=== PATIENT | female | born 1990 | race Caucasian/White ===

== ENCOUNTER 2019-01-04 08:20 | Emergency (ER) | payer OTHER ==
[2019-01-04] MEDS ORDERED: Zofran 4 MG/2 ML VIAL ONE ×2 (08:41→08:48)
[2019-01-04] MEDS ORDERED: Sodium Chloride 0.9% 1000 ML 1,000 ML ONE ×2 (08:41→10:31)
[2019-01-04] MEDS ORDERED: TORAdol 30 mg Injection ONE ×2 (08:41→08:48)
[2019-01-04] MEDS ORDERED: Zofran 4 MG/2 ML VIAL IV ONE (08:44)
[2019-01-04] MEDS ORDERED: TORAdol 30 mg Injection IV ONE (08:44)
[2019-01-04] MEDS ORDERED: Sodium Chloride 0.9% 1000 ML 1,000 ML IV STA ×2 (08:44→10:04)
[2019-01-04] MEDS ORDERED: Sodium Chloride 0.9% 1000 ML 0 ML ONE (08:48)
--- NOTE | 2019-01-04 08:49 | ERPHSYRPT ---
- History of Present Illness Time Seen by Provider: 01/04/19 08:44 Historian: patient Exam Limitations: no limitations Patient Subjective Stated Complaint: Pt states she woke up this am with pain. Patients reports not pain like this in the past Triage Nursing Assessment: Patient ambulated into ER. patinet Alert and orientated, complains of pain to left lower back and abdomin since this am. Pain not reported with urination. Patient complains of nausia Physician History: 28-year-old white female arrives with complaint of pain in her left flank radiating to her left lower quadrant symptoms since 7:30 this morning described as sharp severe crampy. Patient has had vomiting since arrival to the emergency room she denies any urinary symptoms. Past medical history: Negative Past surgical history includes tubal ligation Social history denies tobacco alcohol or illicit drug use. Timing/Duration: today (7:30 AM) Activities at Onset: rest Quality: cramping, sharpness Abdominal Pain Onset Location: LLQ, flank (left flank) Pain Radiation: LLQ, flank (left flank) Severity of Pain-Max: moderate Severity of Pain-Current: moderate Modifying Factors: Improves With: nothing Associated Symptoms: back (left flank pain), nausea, vomiting, No chest pain, No diaphoresis, No diarrhea, No fever/chills, No fatigue, No headache, No heartburn, No loss of appetite, No neck pain, No rash, No shortness of breath, No syncope Previous symptoms: no prior history Allergies/Adverse Reactions: No Known Drug Allergies Allergy (Unverified 01/04/19 08:42) Hx Tetanus, Diphtheria Vaccination/Date Given: No Hx Influenza Vaccination/Date Given: Yes Hx Pneumococcal Vaccination/Date Given: No Immunizations Up to Date: Yes - Review of Systems Constitutional: No Fever, No Chills Eyes: No Symptoms Ears, Nose, & Throat: No Symptoms Respiratory: No Cough, No Dyspnea Cardiac: No Chest Pain, No Edema, No Syncope Abdominal/Gastrointestinal: Abdominal Pain (left lower quadrant pain), Nausea, Vomiting, No Diarrhea, No Constipation, No Hematemesis, No Hematochezia, No Melena, No Dysphagia, No Appetite Changes Genitourinary Symptoms: Flank Pain (left flank pain), No Dysuria, No Hematuria, No Hesitancy, No Incontinence, No Urgency, No Urinary Retention, No Menorrhagia , No , No Vaginal Bleeding Musculoskeletal: Back Pain (left flank pain), No Neck Pain Skin: No Rash Neurological: No Dizziness, No Focal Weakness, No Sensory Changes Psychological: No Symptoms Endocrine: No Symptoms All Other Systems: Reviewed and Negative - Past Medical History Pertinent Past Medical History: No Neurological History: No Pertinent History ENT History: No Pertinent History Cardiac History: No Pertinent History Respiratory History: No Pertinent History Endocrine Medical History: No Pertinent History Musculoskeletal History: No Pertinent History GI Medical History: No Pertinent History History: No Pertinent History Psycho-Social History: No Pertinent History Female Reproductive Disorders: No Pertinent History - Past Surgical History Past Surgical History: Yes Neuro Surgical History: No Pertinent History Cardiac: No Pertinent History Respiratory: No Pertinent History Gastrointestinal: No Pertinent History Genitourinary: No Pertinent History Musculoskeletal: No Pertinent History Female Surgical History: Section, Tubal Ligation - Social History Smoking Status: Never smoker Exposure to second hand smoke: No Drug Use: none - Female History Hx Last Menstrual Period: 12/05/18 Hx Now: No - Nursing Vital Signs Nursing Vital Signs: Initial Vital Signs Temperature 97.9 F 01/04/19 08:24 Pulse Rate 53 L 01/04/19 08:24 Respiratory Rate 20 01/04/19 08:24 Blood Pressure 117/78 01/04/19 08:24 O2 Sat by Pulse Oximetry 99 01/04/19 08:24 Pain Scale Pain Intensity 10 - Physical Exam General Appearance: moderate distress, alert Eye Exam: PERRL/EOMI, eyes nml inspection Ears, Nose, Throat Exam: normal ENT inspection, pharynx normal, moist mucous membranes Neck Exam: normal inspection, non-tender, supple, full range of motion Respiratory Exam: normal breath sounds, lungs clear, No respiratory distress Cardiovascular Exam: regular rate/rhythm, normal heart sounds, capillary refill <2 sec Gastrointestinal/Abdomen Exam: soft, No tenderness, No mass Back Exam: normal inspection, normal range of motion, No CVA tenderness, No vertebral tenderness Extremity Exam: normal inspection, normal range of motion, pelvis stable Neurologic Exam: alert, oriented x 3, cooperative, bowl topper II-XII nml as tested, normal mood/affect, nml cerebellar function, sensation nml, No motor deficits Skin Exam: normal color, warm, dry SpO2 Interpretation: normal (99%) SpO2: 99 - Course Nursing assessment & vital signs reviewed: Yes - CT Exams Abdomen/Pelvis CT Interpretation: Discussed w/radiologist (CT abdomen and pelvis: Impression 1. 3 mm distal left ureter calculus producing partial obstruction. Additional left renal microcalculus. Tiny cul-de-sac fluid presumably physiologic. 3. Remaining CT abdomen and pelvis without contrast negative..) Ordered Tests: Active Orders 24 hr Category Date Time Status IV Insertion STAT Care 01/04/19 08:44 Active ABDOMEN AND PELVIS W/0 CONTRAS [CT] Stat Exams 01/04/19 09:01 Completed CBC W DIFF Stat Lab 01/04/19 08:44 Completed CMP Stat Lab 01/04/19 08:50 Completed CULTURE,URINE Stat Lab 01/04/19 08:50 Received HCG QUALITATIVE,SERUM Stat Lab 01/04/19 08:50 Completed UA W/RFX UR CULTURE Stat Lab 01/04/19 08:50 Completed Medication Summary Discontinued Medications Generic Name Dose Route Start Last Admin Trade Name Freq PRN Reason Stop Dose Admin Sodium Chloride Confirm 01/04/19 08:41 Sodium Chloride 0.9% 1000 Ml Administered 01/04/19 08:42 Dose 1,000 mls @ ud .ROUTE .STK-MED ONE Sodium Chloride 1,000 mls @ 999 mls/hr 01/04/19 08:44 01/04/19 09:56 Sodium Chloride 0.9% 1000 Ml IV 01/04/19 09:44 Infused .Q1H1M STA Infusion Sodium Chloride Confirm 01/04/19 08:48 Sodium Chloride 0.9% 1000 Ml Administered 01/04/19 08:49 Dose 1,000 mls @ ud .ROUTE .STK-MED ONE Sodium Chloride 1,000 mls @ 999 mls/hr 01/04/19 10:04 01/04/19 10:48 Sodium Chloride 0.9% 1000 Ml IV 01/04/19 11:04 999 mls/hr .Q1H1M STA Administration Sodium Chloride Confirm 01/04/19 10:31 Sodium Chloride 0.9% 1000 Ml Administered 01/04/19 10:32 Dose 1,000 mls @ ud .ROUTE .STK-MED ONE Ketorolac Tromethamine Confirm 01/04/19 08:41 Toradol 30 Mg Injection Administered 01/04/19 08:42 Dose 30 mg .ROUTE .STK-MED ONE Ketorolac Tromethamine 30 mg 01/04/19 08:44 01/04/19 08:49 Toradol 30 Mg Injection IV 01/04/19 08:45 30 mg STAT ONE Administration Ketorolac Tromethamine Confirm 01/04/19 08:48 Toradol 30 Mg Injection Administered 01/04/19 08:49 Dose 30 mg .ROUTE .STK-MED ONE Morphine Sulfate 4 mg 01/04/19 09:46 01/04/19 09:54 Morphine Sulfate 4 Mg Inj IV 01/04/19 09:47 4 mg STAT ONE Administration Morphine Sulfate Confirm 01/04/19 09:47 Morphine Sulfate 4 Mg Inj Administered 01/04/19 09:48 Dose 4 mg .ROUTE .STK-MED ONE Ondansetron HCl Confirm 01/04/19 08:41 Zofran 4 Mg/2 Ml Vial Administered 01/04/19 08:42 Dose 4 mg .ROUTE .STK-MED ONE Ondansetron HCl 4 mg 01/04/19 08:44 01/04/19 08:49 Zofran 4 Mg/2 Ml Vial IV 01/04/19 08:45 4 mg STAT ONE Administration Ondansetron HCl Confirm 01/04/19 08:48 Zofran 4 Mg/2 Ml Vial Administered 01/04/19 08:49 Dose 4 mg .ROUTE .STK-MED ONE Lab/Rad Data: Laboratory Result Diagrams 01/04/19 08:44 01/04/19 08:50 Laboratory Results 01/04/19 01/04/19 01/04/19 Range/Units 08:50 08:50 08:50 WBC (4.0-10.5) K/mm3 RBC (4.1-5.4) M/mm3 Hgb (12.0-16.0) gm/dl Hct (35-47) % MCV (78-100) fl MCH (26-32) pg MCHC (32-36) g/dl RDW (11.5-14.0) % Plt Count (150-450) K/mm3 MPV (6-9.5) fl Gran % (36.0-66.0) % Eos # (Auto) (0-0.5) Absolute Lymphs (auto) (1.0-4.6) Absolute Monos (auto) (0.0-1.3) Lymphocytes % (24.0-44.0) % Monocytes % (0.0-12.0) % Eosinophils % (0.00-5.0) % Basophils % (0.0-0.4) % Absolute Granulocytes (1.4-6.9) Basophils # (0-0.4) Sodium 141 (137-145) mmol/L Potassium 3.8 (3.5-5.1) mmol/L Chloride 104 (98-107) mmol/L Carbon Dioxide 26 (22-30) mmol/L Anion Gap 15.5 H (5-15) MEQ/L BUN 13 (7-17) mg/dL Creatinine 0.98 (0.52-1.04) mg/dL Estimated GFR > 60.0 ML/MIN Glucose 90 (74-106) mg/dL Calcium 9.2 (8.4-10.2) mg/dL Total Bilirubin 0.30 (0.2-1.3) mg/dL AST 24 (14-36) U/L ALT 23 (0-35) U/L Alkaline Phosphatase 78 (38-126) U/L Serum Total Protein 8.1 (6.3-8.2) g/dL Albumin 4.5 (3.5-5.0) g/dL Serum , Qual NEGATIVE (Negative) Urine Color YELLOW (YELLOW) Urine Appearance SLIGHTLY CLOUDY (CLEAR) Urine pH 5.0 (5-6) Ur Specific Pablo 1.021 (1.005-1.025) Urine Protein NEGATIVE (Negative) Urine Ketones NEGATIVE (NEGATIVE) Urine Blood SMALL (0-5) Bob/ul Urine Nitrite NEGATIVE (NEGATIVE) Urine Bilirubin NEGATIVE (NEGATIVE) Urine Urobilinogen NEGATIVE (0-1) mg/dL Ur Leukocyte Esterase TRACE (NEGATIVE) Urine WBC (Auto) 3-5 (0-5) /HPF Urine RBC (Auto) 6-10 (0-2) /HPF U Epithel Cells (Auto) MODERATE (FEW) /HPF Urine Bacteria (Auto) RARE (NEGATIVE) /HPF Other Casts (Auto) 2-5 (NEGATIVE) /LPF Urine Mucus (Auto) SLIGHT (NEGATIVE) /HPF Urine Culture Reflexed YES (NO) Urine Glucose NEGATIVE (NEGATIVE) mg/dL 01/04/19 Range/Units 08:44 WBC 7.2 (4.0-10.5) K/mm3 RBC 4.71 (4.1-5.4) M/mm3 Hgb 13.2 (12.0-16.0) gm/dl Hct 40.5 (35-47) % MCV 86.0 (78-100) fl MCH 28.0 (26-32) pg MCHC 32.6 (32-36) g/dl RDW 14.4 H (11.5-14.0) % Plt Count 248 (150-450) K/mm3 MPV 10.5 H (6-9.5) fl Gran % 47.8 (36.0-66.0) % Eos # (Auto) 0.11 (0-0.5) Absolute Lymphs (auto) 3.02 (1.0-4.6) Absolute Monos (auto) 0.63 (0.0-1.3) Lymphocytes % 41.7 (24.0-44.0) % Monocytes % 8.7 (0.0-12.0) % Eosinophils % 1.5 (0.00-5.0) % Basophils % 0.3 (0.0-0.4) % Absolute Granulocytes 3.46 (1.4-6.9) Basophils # 0.02 (0-0.4) Sodium (137-145) mmol/L Potassium (3.5-5.1) mmol/L Chloride (98-107) mmol/L Carbon Dioxide (22-30) mmol/L Anion Gap (5-15) MEQ/L BUN (7-17) mg/dL Creatinine (0.52-1.04) mg/dL Estimated GFR ML/MIN Glucose (74-106) mg/dL Calcium (8.4-10.2) mg/dL Total Bilirubin (0.2-1.3) mg/dL AST (14-36) U/L ALT (0-35) U/L Alkaline Phosphatase (38-126) U/L Serum Total Protein (6.3-8.2) g/dL Albumin (3.5-5.0) g/dL Serum , Qual (Negative) Urine Color (YELLOW) Urine Appearance (CLEAR) Urine pH (5-6) Ur Specific Pablo (1.005-1.025) Urine Protein (Negative) Urine Ketones (NEGATIVE) Urine Blood (0-5) Bob/ul Urine Nitrite (NEGATIVE) Urine Bilirubin (NEGATIVE) Urine Urobilinogen (0-1) mg/dL Ur Leukocyte Esterase (NEGATIVE) Urine WBC (Auto) (0-5) /HPF Urine RBC (Auto) (0-2) /HPF U Epithel Cells (Auto) (FEW) /HPF Urine Bacteria (Auto) (NEGATIVE) /HPF Other Casts (Auto) (NEGATIVE) /LPF Urine Mucus (Auto) (NEGATIVE) /HPF Urine Culture Reflexed (NO) Urine Glucose (NEGATIVE) mg/dL - Progress Progress: improved Progress Note: 01/04/19 11:22 Patient feeling better after 2 L of normal saline Toradol 30 mg IV morphine 4 mg IV and Zofran. Will discharge - Departure Departure Disposition: Home Clinical Impression: Left flank pain Urolithiasis Qualifiers: Urinary calculus location: kidney and ureter Qualified Code(s): N20.2 - Calculus of kidney with calculus of ureter Condition: Fair Critical Care Time: No Referrals: EMELY SMITH NP [Primary Care Provider] - Additional Instructions: Return home. Plenty of fluids. [place] as prescribed. Strain all urine. Followup with your family . Return for acute distress or for severe symptoms. Prescriptions: Hydrocodone/APAP 5-325 Tab^^^ [[place] 5-325 Tablet^^^] 1 each PO Q4HPRN PRN #12 tablet MDD 6 PRN Reason: left flank pain
[2019-01-04 08:53] LABS: BASOPHIL % 0.3 % (0.0-0.4); Basophil (Absolute #) 0.02 (0-0.4); Eosinophil % 1.5 % (0.00-5.0); Eosinophil (Absolute #) 0.11 (0-0.5); Granulocyte Absolute (ANC) 3.46 (1.4-6.9); Granulocytes % 47.8 % (36.0-66.0); Hematocrit 40.5 % (35-47); Hemoglobin 13.2 gm/dl (12.0-16.0); Lymphocyte (Absolute #) 3.02 (1.0-4.6); Lymphocytes % 41.7 % (24.0-44.0); Mean Corpuscular Hgb Concent. 32.6 g/dl (32-36); Mean Platelet Volume 10.5 fl (6-9.5); Monocyte (Absolute #) 0.63 (0.0-1.3); Monocytes % 8.7 % (0.0-12.0); Platelet Count 248 K/mm3 (150-450); Red Blood Count 4.71 M/mm3 (4.1-5.4); Red Cell Distribution Width 14.4 % (11.5-14.0); White Blood Count 7.2 K/mm3 (4.0-10.5)
[2019-01-04 09:05] LABS: ALBUMIN 4.5 g/dL (3.5-5.0); ALKALINE PHOSPHATASE 78 U/L (38-126); ANION GAP 15.5 MEQ/L (5-15); BLOOD UREA NITROGEN 13 mg/dL (7-17); CHLORIDE 104 mmol/L (98-107); Calcium 9.2 mg/dL (8.4-10.2); Carbon Dioxide 26 mmol/L (22-30); Creatinine 1 0.98 mg/dL (0.52-1.04); Glucose 90 mg/dL (74-106); Potassium 3.8 mmol/L (3.5-5.1); SGOT/AST 24 U/L (14-36); SGPT/ALT 23 U/L (0-35); SODIUM 141 mmol/L (137-145); Total Protein 8.1 g/dL (6.3-8.2)
[2019-01-04 09:09] LABS: Appearance SLIGHTLY CLOUDY (CLEAR); Bacteria RARE /HPF (NEGATIVE); Bilirubin NEGATIVE (NEGATIVE); Blood SMALL Ery/ul (0-5); Epithelial Cells MODERATE /HPF (FEW); Glucose NEGATIVE (NEGATIVE); Ketones NEGATIVE (NEGATIVE); Leukocyte Esterase TRACE (NEGATIVE); Mucus SLIGHT /HPF (NEGATIVE); Nitrite NEGATIVE (NEGATIVE); Protein,Urine Dip NEGATIVE (Negative); Specific Gravity 1.021 (1.005-1.025); Urobilinogen NEGATIVE mg/dL (0-1)
[2019-01-04] MEDS ORDERED: MORPHINE SULFATE 4 MG INJ IV ONE (09:46)
[2019-01-04] MEDS ORDERED: MORPHINE SULFATE 4 MG INJ ONE (09:47)
--- NOTE | 2019-01-04 09:53 | XRAY ---
Indication: Left flank pain. Multiple contiguous axial images obtained through the abdomen and pelvis without contrast using renal stone protocol. Comparison: None Lung bases are clear. Heart is not enlarged. 3 mm distal left ureter calculus just proximal to the UVJ. Proximal left ureter is distended up to 10 mm and there is mild hydronephrosis consistent with obstructive uropathy. No perinephric fluid. Additional left lower renal punctate calculus. Noncontrasted stomach and bowel loops appear nonobstructed. Normal appendix. Tiny cul-de-sac fluid presumed physiologic from rupture/leaking cyst. No free air. Remaining liver, gallbladder, pancreas, spleen, adrenal glands, right kidney, right ureter, bladder, uterus, and aorta appear unremarkable for noncontrast exam. Osseous structures intact. No ventral or inguinal hernias. Impression: 1. 3 mm distal left ureter calculus producing partial obstruction as detailed. Additional left renal micro-calculus. 2. Tiny cul-de-sac fluid presumed physiologic. 3. Remaining CT abdomen/pelvis without contrast exam is negative. CT DI 12.26
[2019-01-04 11:44] VITALS: BP 124/73; PULSE 71; O2SAT 97
== END 2019-01-04 11:42 | disposition home or self-care (01) ==
LOC: ED 08:20
DX: R10.9 Unspecified abdominal pain (principal); N20.2 Calculus of kidney with calculus of ureter; R10.32 Left lower quadrant pain
CPT/HCPCS: 36415; 74176; 80053; 81001; 81025; 85025; 87086; 96360; 96361; 96374; 96375; 99284; J1885; J2270; J2405